=== PATIENT | female | born 1990 | race Caucasian/White ===

== ENCOUNTER 2019-02-05 14:15 | Emergency (ER) | payer MEDICAID ==
[~2019-02-05] VITALS: Ht 162.6 cm; Wt 120.0 kg
[2019-02-05 15:13] LABS: BASOPHILS % 1.1 % (0.0-2.0); EOSINOPHILS % 3.1 % (0.0-5.0); HEMATOCRIT. 41.4 % (36.0-48.0); HEMOGLOBIN. 13.9 g/dL (12.0-16.0); LYMPHOCYTES % 32.2 % (20.0-50.0); MEAN CORPUSCULAR VOLUME 92.4 fL (81.0-99.0); MEAN PLATELET VOLUME 8.2 fl (7.4-10.4); MONOCYTES % 11.5 % (2.0-8.0); NEUTROPHILS % 52.1 % (40.0-76.0); PLATELET 336 x1000/uL (130-400); RED BLOOD CELL COUNT 4.48 mill/uL (4.2-5.4); RED CELL DISTRIBUTION WIDTH 13.4 % (11.6-14.6)
[2019-02-05 15:21] LABS: CHLORIDE 112 mEq/L (98-107); PROTHROMBIN TIME 10.2 sec (9.6-11.0)
[2019-02-05 15:35] LABS: HCG SCREEN NEGATIVE
[2019-02-05] MEDS ORDERED: HALOPERIDOL LACTATE 5MG/ML VIAL IM ONE (15:45)
[2019-02-05 16:00] VITALS: BP 109/67
== END 2019-02-05 16:28 | disposition left against medical advice (07) ==
LOC: ER 14:38
DX: R45.1 Restlessness and agitation (principal); R10.9 Unspecified abdominal pain; R46.89 Other symptoms and signs involving appearance and behavior
CPT/HCPCS: 36415; 80053; 83605; 83690; 84484; 84703; 85025; 85610; 99283; J1630; Z7610